=== PATIENT | female | born 1990 | race Caucasian/White ===

== ENCOUNTER 2017-03-01 17:41 | Inpatient (IN) | payer MEDICAID, OTHER ==
[~2017-03-01] VITALS: Ht 170.2 cm; Wt 86.6 kg
[~2017-03-01 17:41] MED LIST: PREN1CAP7 PO
[2017-03-01] MEDS ORDERED: BUPR150CR PO (17:58)
[2017-03-01] MEDS ORDERED: ADDE30TA PO (17:58)
[2017-03-01] MEDS ORDERED: METH10TA PO (17:59)
--- NOTE | 2017-03-01 18:36 | HHI.HP ---
HPI Chief Complaint High blood pressure and swelling, [facility] Date Seen: Mar 01, 2017 Travel History International Travel<30 Days: No Contact w/Intl Traveler<30Days: No History of Present Illness HPI Patient is 26-year-old white female G2 1 P0 at 31 weeks gestation [facility]. Who presents referred over for high blood pressure. Patient states everything was fine until a week ago when she noted she started swelling massively and her blood pressure went up has been going on for a week she has not been at bedrest. She states she continues to swell excessively in her legs hands and even face. She's gained a lot of weight in the last 2 weeks. In that she's gained 60 pounds overall with . Her blood pressures in the 150 over 90s range, she is massively swollen and the lower extremities, heart rate is reactive and she is not jann. Patient denies visual changes of flashing lights or sparkles in her vision denies significant headache only when she is hungry she says she gets a headache, she has no significant right upper quadrant pain but occasionally has some abdominal pain overall, she feels okay otherwise she does not have a overall malaise or her just bad feeling ,. the baby is active Para: 0 : 1 History Past Medical History Narrative Medical Patient had some type of superficial infection on her arms and required surgical resection and spots depression / anxiety was on wellbutrin and adderall Social History Narrative Social History She has a history of IV drug abuse but states she is not doing that now she' s in the methadone clinic in every day gets her methadone Tobacco Use: Yes Substance Abuse: Yes Allergies-Medications (Allergen,Severity, Reaction): Coded Allergies: *MDRO Multi-Drug Resistant Organism (Verified Adverse Reaction, Unknown, ) MRSA ankle wound 03/2015. Home Meds Active Scripts W/O Vit A W/ Fe Fumar (Citranatal [place])27-1-260 Mg Cap1 Cap PO DAILY #60 CAP Ref 5 Prov:Tania Townsend CNM DIRECTOR ZONE 12/25/16 Reported Medications Methadone 10 Mg Tab10 Mg PO DAILY Ref 0 03/01/17 Amphetamine-Dextroamphetamine (Adderall)30 Mg Tab30 Mg PO BID #60 TAB Ref 0 Avoid late evening doses. Space doses at least 4 to 6 hours if more than once/day dosing. 03/01/17 Bupropion HCl ER 12 HR (Wellbutrin SR 12 HR)150 Mg [id number] Mg PO Q12HR PRN ( Control Depression) Ref 0 03/01/17 Review of Systems General / Constitutional: No: Fever, Weight Gain, Chills, Other Eyes: No: Diploplia, Blurred Vision, Visual changes, Pain, Photophobia HENT: No: Headaches, Vertigo, Lightheadedness Cardiovascular: No: Irregular Rhythm, Chest Pain or Discomfort, Palpitations, Tachycardia, Syncope, Varicosities, Edema, Cyanosis Respiratory: No: Cough, Short of Breath, Other Gastrointestinal: No: Nausea, Vomiting, Diarrhea Genitourinary: No: Decreased Urinary Output, Oliguria Musculoskeletal: No: Limited ROM, Weakness, Cramping, Edema, Pain Skin: No Rash, No Itching, No Dryness, No Lumps, No Change in Pigmentation, No Change in Nails, No Alopecia, No Lesions Neurologic: No: Weakness, Dizziness, Syncope, Focal Abnormalities, Coordination Problem, Headache, Slurred Speech, Seizures Psychiatric: No: Depression, Suicidal Ideations, Homicidal Ideation Endocrine: No: Heat Intolerance, Cold Intolerance, Polydipsia, Polyuria, Other Physical Exam Narrative GENERAL: Well-nourished, well-developed patient. SKIN: Warm and dry. HEAD: Normocephalic and atraumatic. EYES: No scleral icterus. No injection or drainage. ENT: No nasal drainage noted. Mucous membranes pink. Airway patent. NECK: Supple, trachea midline. No JVD. CARDIOVASCULAR: Regular rate and rhythm without murmurs, gallops, or rubs. RESPIRATORY: Breath sounds equal bilaterally. No accessory muscle use. BREASTS: Bilateral exam showed no masses , no retractions, no nipple discharge. ABDOMEN/GI: Abdomen soft, non-tender, bowel sounds present, no rebound, no guarding Gravid to [31-] weeks size Fundal Height: [31-] GENITOURINARY: External Genitalia: intact and normal in appearance BUS glands: [-] Cervix: [-] Dilatation: Fingertip] Effacement: [-] 50 Station: [-3] Membranes: [intact ] Uterine Contractions: [-none] FHT's: Category: [1-] Baseline: [-133] Reactive: [-yes] Variability: [-mod] Decels: [-none] EXTREMITIES: No cyanosis, 4+ pitting edema BACK: Nontender without obvious deformity. No CVA tenderness. NEUROLOGICAL: Awake and alert. Motor and sensory grossly within normal limits. Five out of 5 muscle strength in all muscle groups. Normal speech. Data Data Orders 26-year-old white female at 31 weeks with preeclampsia, blood pressures 150 over 90s she has 4+ pitting edema and 3+ protein on dipstick. Plan to admit for hospital for PIH labs and 24-hour urine protein creatinine clearance, bedrest as her therapy at this time would anticipate her losing quite a bit of wt if she'll stay in bed for the next well until she delivers basically Plan OB ultrasound for tomorrow Grady Kim II, MD Mar 01, 2017 18:36
[2017-03-01] MEDS ORDERED: hydrALAZINE HCL 20 MG/ML VIAL IV PUSH PRN ×2 (18:45→19:15)
[2017-03-01] MEDS ORDERED: ACETAMINOPHEN 325 MG TAB PO PRN (18:45)
[2017-03-01] MEDS ORDERED: DOCUSATE SODIUM 100 MG CAP PO PRN (18:45)
[2017-03-01] MEDS ORDERED: ONDANSETRON HCL 4 MG/2 ML VIAL IV PRN (18:45)
[2017-03-01] MEDS ORDERED: CALCIUM GLUCONATE 10% 1 GM/10 ML VIAL IV PUSH PRN (18:45)
[2017-03-01] MEDS ORDERED: BETAMETHASONE SOD PHOS/ACETATE SUSP 30 MG/5 ML VIAL IM SCH (18:45)
[2017-03-01] MEDS ORDERED: LACTATED RINGER'S 1000 ML INJ 1,000 ML IV SCH (18:45)
[2017-03-01] MEDS ORDERED: SODIUM CHLORIDE 0.9% FLUSH 5 ML FLUSH IV PRN (18:45)
[2017-03-01] MEDS ORDERED: ZOLPIDEM TARTRATE 5 MG TAB PO PRN (18:45)
[2017-03-01] MEDS ORDERED: buPROPion HCL 150 MG SUSTAINED RELEASE TAB PO ONE (19:00)
[2017-03-01] MEDS ORDERED: SODIUM CHLORIDE 0.9% FLUSH 5 ML FLUSH IV SCH (21:00)
[2017-03-02] MEDS ORDERED: MULTIVIT/MIN/PREN/FOL AC/IRON PRENATAL TAB PO SCH (09:00)
[2017-03-02] MEDS ORDERED: METHADONE HCL 10 MG TAB PO SCH (09:00)
== END 2017-03-01 19:20 | disposition left against medical advice (07) | DRG 781 ==
LOC: HOBED 17:41 → H2EA 19:01
PROVIDERS: ADMIT Obstetrics & Gynecology Maternal & Fetal Medicine; ATTEND Obstetrics & Gynecology Maternal & Fetal Medicine
DX: O14.93 Unspecified pre-eclampsia, third trimester (principal); F11.20 Opioid dependence, uncomplicated; O99.323 Drug use complicating pregnancy, third trimester; O99.333 Smoking (tobacco) complicating pregnancy, third trimester; F17.210 Nicotine dependence, cigarettes, uncomplicated; Z3A.31 31 weeks gestation of pregnancy

== ENCOUNTER 2017-03-08 18:53 | Observation (INO) | payer MEDICAID ==
[2017-03-08] VITALS (12 sets, daily range): BP systolic 139–149; BP diastolic 95–102; PULSE 60–83; RESP 22
[~2017-03-08 18:53] MED LIST changes: +ADDE30TA PO; +BUPR150CR PO; +METH10TA PO
[2017-03-08 20:13] LABS: BACTERIA, URINE RARE /hpf; BLOOD, URINE NEG (NEG); COMMENT (UR) CULT NOT INDICATED; CULTURE IF INDICATED CULT NOT INDICATED; GLUCOSE,URINE NEG (NEG); KETONE, URINE NEG (NEG); MUCUS URINE FEW /lpf (OCC); NITRITE,URINE NEG (NEG); SQUAMOUS EPITHELIAL CELL URINE 7 /hpf (0-5); URINE COLOR YELLOW (YELLW/STRAW)
[2017-03-08 20:18] LABS: BARBITURATES, URINE NEG (NEG); COCAINE, URINE NEG (NEG)
--- NOTE | 2017-03-08 20:30 | PD ---
HPI Chief Complaint sent from [facility] for preeclampsia workup, seen in office today with swelling and elevated blood pressure 154/100 Travel History International Travel<30 Days: No Contact w/Intl Traveler<30Days: No Known Affected Area: No History of Present Illness HPI Pt is a 26 y/o G1 with IUP at 32.4 weeks presents from [facility] for preeclampsia evaluation. Pt seen in office today and noted to have a blood pressure of 154/ 100. She also reports severe swelling of feet and LE, as well as some swelling of hands. She reports intermittent headaches for past 3 weeks, sometimes relieved with excedrin. Pt denies ruq pain, vision change, or scotomata. PT denies contractions, vb, lof. +FM Para: 0 : 1 History Past Medical History Narrative Medical history of IVDA, on methdone maintenance since 2014 h/o MRSA ADHD Past Surgical History Narrative Surgical I+D, arm abscess Family History Family History: Negative Social History Alcohol Use: No Tobacco Use: Yes (5 cig/day) Substance Abuse: No (h/o IVDA) Allergies-Medications (Allergen,Severity, Reaction): Coded Allergies: *MDRO Multi-Drug Resistant Organism (Verified Adverse Reaction, Unknown, ) MRSA ankle wound 03/2015. Home Meds Active Scripts W/O Vit A W/ Fe Fumar (Citranatal [place])27-1-260 Mg Cap1 Cap PO DAILY #60 CAP Ref 5 Prov:Tania Townsend CNM MEDICAID BILLING CLERK 12/25/16 Reported Medications Methadone 10 Mg Tab10 Mg PO DAILY Ref 0 03/01/17 Amphetamine-Dextroamphetamine (Adderall)30 Mg Tab30 Mg PO BID #60 TAB Ref 0 Avoid late evening doses. Space doses at least 4 to 6 hours if more than once/day dosing. 03/01/17 Bupropion HCl ER 12 HR (Wellbutrin SR 12 HR)150 Mg [id number] Mg PO Q12HR PRN ( Control Depression) Ref 0 03/01/17 Narrative Medication zantac Review of Systems General / Constitutional: Weight Gain Eyes: No: Diploplia, Blurred Vision, Visual changes, Pain, Photophobia, Other HENT: Headaches Cardiovascular: No: Irregular Rhythm, Chest Pain or Discomfort, Palpitations, Tachycardia, Syncope, Varicosities, Edema, Cyanosis, Other Respiratory: No: Cough, Short of Breath, Wheezing, Other Gastrointestinal: No: Nausea, Vomiting, Diarrhea, Abdominal Pain, Hematemesis, Hematochezia, Constipation, Changes in Bowel Habits, Indigestion, Loss of Appetite, Other Genitourinary: No: Urgency, Frequency, Dysuria, Nocturia, Hematuria, Decreased Urinary Output, Oliguria, Hesitancy, Dribbling, Incontinence, Pelvic Pain, Dyspareunia, Discharge, Menorrhagia, Vaginal Bleeding, Other Musculoskeletal: Edema Skin: No Rash, No Itching, No Dryness, No Lumps, No Change in Pigmentation, No Change in Nails, No Alopecia, No Lesions, No Breast Lumps, No Breast Tenderness , No Breast Swelling, No Other Neurologic: Headache Psychiatric: No: Anxiety, Depression, Suicidal Ideations, Disorder of Thought, Mood Disorder, Substance Abuse, Homicidal Ideation, Other Endocrine: No: Heat Intolerance, Cold Intolerance, Polydipsia, Polyuria, Other Hematologic/Lymphatic: No Easy Bruising, No Lymph Node Enlargement, No Other Physical Exam Vital Signs Date Time Temp Pulse Resp B/P Pulse Ox O2 Delivery O2 Flow Rate FiO2 03/08/17 19:40 75 blood pressure: 142/98, 139/95 Narrative GENERAL: Well-nourished, well-developed patient. SKIN: Warm and dry. HEAD: Normocephalic and atraumatic. EYES: No scleral icterus. No injection or drainage. ENT: No nasal drainage noted. Mucous membranes pink. Airway patent. NECK: Supple, trachea midline. No JVD. CARDIOVASCULAR: Regular rate and rhythm without murmurs, gallops, or rubs. RESPIRATORY: Breath sounds equal bilaterally. No accessory muscle use. ABDOMEN/GI: Abdomen soft, non-tender, bowel sounds present, no rebound, no guarding Gravid FHT's: Category: [1] Baseline: 125 Reactive: yes Variability: mod Decels: no EXTREMITIES: 2+ pedal edema extending to mid-lowe BACK: Nontender without obvious deformity. No CVA tenderness. NEUROLOGICAL: Awake and alert. Motor and sensory grossly within normal limits. Five out of 5 muscle strength in all muscle groups. Normal speech. 3+ patellar and biceps reflexes bilaterally, negative ankle clonus Data Data Vital Signs Reviewed: Yes Orders Vital Signs (Adult) .ON ADMISSION (03/08/17 19:35) ^ Labor Status (03/08/17 19:35) Urinalysis - C+S If Indicated (03/08/17 19:35) Cbc No Diff, Includes Plts (03/08/17 19:35) Comprehensive Metabolic Panel (03/08/17 19:35) Uric Acid (03/08/17 19:35) Ob/Psych Drug Screen, Urine (03/08/17 19:35) Mrsa Screen (03/08/17 19:36) Labs Laboratory Tests Test 03/08/17 19:30 Urine Color YELLOW Urine Turbidity HAZY Urine pH 6.0 Urine Specific [place] 1.033 Urine Protein 300 mg/dL Urine Glucose (UA) NEG mg/dL Urine Ketones NEG mg/dL Urine Occult Blood NEG Urine Nitrite NEG Urine Bilirubin NEG Urine Urobilinogen LESS THAN 2.0 MG/DL Urine Leukocyte Esterase NEG Urine RBC 2 /hpf Urine WBC 2 /hpf Urine Squamous Epithelial 7 /hpf Cells Urine Bacteria RARE /hpf Urine Mucus FEW /lpf Microscopic Urinalysis Comment CULT NOT INDICATED Urine Opiates Screen NEG Urine Barbiturates Screen NEG Urine Amphetamines Screen POS Urine Benzodiazepines Screen NEG Urine Cocaine Screen NEG Urine Cannabinoids Screen NEG MDM Medical Record Reviewed: Yes ( reviewed) Narrative Course / MDM 1. 26 y/o female G1 with IUP at 32.3 wks with elevated blood pressure, swelling , and intermittent headache--rule out preeclampsia --PIH labs ordered and UA collected --serial blood pressure monitoring 2. h/o MRSA--MRSA screen collected 3. h/o IVDA--on methadone maintenance UA with 3+ protein. Will admit for 24 hr urine collection in house. Initiate BMS, ultrasound in am. Labs still pending as RN and charge auditor attempted to draw blood/place IV line without success. Anesthesia notified to evaluate patient for IV access. Db Alvarado MD Mar 08, 2017 20:30
[2017-03-08 20:32] LABS: AMPHETAMINE, URINE POS (NEG)
[2017-03-08] MEDS ORDERED: LACTATED RINGER'S 1000 ML INJ 1,000 ML IV SCH (20:40)
[2017-03-08] MEDS ORDERED: SODIUM CHLORIDE 0.9% FLUSH 5 ML FLUSH IV PRN (20:45)
[2017-03-08] MEDS ORDERED: ONDANSETRON HCL 4 MG/2 ML VIAL IV PRN (20:45)
[2017-03-08] MEDS ORDERED: CALCIUM GLUCONATE 10% 1 GM/10 ML VIAL IV PUSH PRN (20:45)
[2017-03-08] MEDS ORDERED: ACETAMINOPHEN 325 MG TAB PO PRN (20:45)
[2017-03-08] MEDS ORDERED: ZOLPIDEM TARTRATE 5 MG TAB PO PRN (20:45)
[2017-03-08] MEDS ORDERED: BETAMETHASONE SOD PHOS/ACETATE SUSP 30 MG/5 ML VIAL IM SCH (20:45)
[2017-03-08] MEDS ORDERED: ONDANSETRON ODT 4 MG TAB PO PRN (20:45)
--- NOTE | 2017-03-08 20:52 | HHI.HP ---
History & Physical H&P HPI HPI Chief Complaint sent from [facility] for preeclampsia workup, seen in office today with swelling and elevated blood pressure 154/100 Travel History International Travel<30 Days: No Contact w/Intl Traveler<30Days: No Known Affected Area: No History of Present Illness HPI Pt is a 26 y/o G1 with IUP at 32.4 weeks presents from [facility] for preeclampsia evaluation. Pt seen in office today and noted to have a blood pressure of 154/ 100. She also reports severe swelling of feet and LE, as well as some swelling of hands. She reports intermittent headaches for past 3 weeks, sometimes relieved with excedrin. Pt denies ruq pain, vision change, or scotomata. PT denies contractions, vb, lof. +FM Para: 0 : 1 History (Limited) History Past Medical History Narrative Medical history of IVDA, on methdone maintenance since 2014 h/o MRSA ADHD Past Surgical History Narrative Surgical I+D, arm abscess Family History Family History: Negative Social History Alcohol Use: No Tobacco Use: Yes (5 cig/day) Substance Abuse: No (h/o IVDA) Allergies-Medications Allergies-Medications (Allergen,Severity, Reaction): Coded Allergies: *MDRO Multi-Drug Resistant Organism (Verified Adverse Reaction, Unknown, ) MRSA ankle wound 03/2015. Home Meds Active Scripts W/O Vit A W/ Fe Fumar (Citranatal [place])27-1-260 Mg Cap1 Cap PO DAILY #60 CAP Ref 5 Prov:Tania Townsend CNM SPD TECH 12/25/16 Reported Medications Methadone 10 Mg Tab10 Mg PO DAILY Ref 0 03/01/17 Amphetamine-Dextroamphetamine (Adderall)30 Mg Tab30 Mg PO BID #60 TAB Ref 0 Avoid late evening doses. Space doses at least 4 to 6 hours if more than once/day dosing. 03/01/17 Bupropion HCl ER 12 HR (Wellbutrin SR 12 HR)150 Mg [id number] Mg PO Q12HR PRN ( Control Depression) Ref 0 03/01/17 Narrative Medication zantac ROS Review of Systems General / Constitutional: Weight Gain Eyes: No: Diploplia, Blurred Vision, Visual changes, Pain, Photophobia, Other HENT: Headaches Cardiovascular: No: Irregular Rhythm, Chest Pain or Discomfort, Palpitations, Tachycardia, Syncope, Varicosities, Edema, Cyanosis, Other Respiratory: No: Cough, Short of Breath, Wheezing, Other Gastrointestinal: No: Nausea, Vomiting, Diarrhea, Abdominal Pain, Hematemesis, Hematochezia, Constipation, Changes in Bowel Habits, Indigestion, Loss of Appetite, Other Genitourinary: No: Urgency, Frequency, Dysuria, Nocturia, Hematuria, Decreased Urinary Output, Oliguria, Hesitancy, Dribbling, Incontinence, Pelvic Pain, Dyspareunia, Discharge, Menorrhagia, Vaginal Bleeding, Other Musculoskeletal: Edema Skin: No Rash, No Itching, No Dryness, No Lumps, No Change in Pigmentation, No Change in Nails, No Alopecia, No Lesions, No Breast Lumps, No Breast Tenderness , No Breast Swelling, No Other Neurologic: Headache Psychiatric: No: Anxiety, Depression, Suicidal Ideations, Disorder of Thought, Mood Disorder, Substance Abuse, Homicidal Ideation, Other Endocrine: No: Heat Intolerance, Cold Intolerance, Polydipsia, Polyuria, Other Hematologic/Lymphatic: No Easy Bruising, No Lymph Node Enlargement, No Other Physical Exam Physical Exam Vital Signs Date Time Temp Pulse Resp B/P Pulse Ox O2 Delivery O2 Flow Rate FiO2 03/08/17 19:40 75 blood pressure: 142/98, 139/95 Narrative GENERAL: Well-nourished, well-developed patient. SKIN: Warm and dry. HEAD: Normocephalic and atraumatic. EYES: No scleral icterus. No injection or drainage. ENT: No nasal drainage noted. Mucous membranes pink. Airway patent. NECK: Supple, trachea midline. No JVD. CARDIOVASCULAR: Regular rate and rhythm without murmurs, gallops, or rubs. RESPIRATORY: Breath sounds equal bilaterally. No accessory muscle use. ABDOMEN/GI: Abdomen soft, non-tender, bowel sounds present, no rebound, no guarding Gravid FHT's: Category: [1] Baseline: 125 Reactive: yes Variability: mod Decels: no EXTREMITIES: 2+ pedal edema extending to mid-lowe BACK: Nontender without obvious deformity. No CVA tenderness. NEUROLOGICAL: Awake and alert. Motor and sensory grossly within normal limits. Five out of 5 muscle strength in all muscle groups. Normal speech. 3+ patellar and biceps reflexes bilaterally, negative ankle clonus Data Data Data Vital Signs Reviewed: Yes Orders Vital Signs (Adult) .ON ADMISSION (03/08/17 19:35) ^ Labor Status (03/08/17 19:35) Urinalysis - C+S If Indicated (03/08/17 19:35) Cbc No Diff, Includes Plts (03/08/17 19:35) Comprehensive Metabolic Panel (03/08/17 19:35) Uric Acid (03/08/17 19:35) Ob/Psych Drug Screen, Urine (03/08/17 19:35) Mrsa Screen (03/08/17 19:36) Labs Laboratory Tests Test 03/08/17 19:30 Urine Color YELLOW Urine Turbidity HAZY Urine pH 6.0 Urine Specific [place] 1.033 Urine Protein 300 mg/dL Urine Glucose (UA) NEG mg/dL Urine Ketones NEG mg/dL Urine Occult Blood NEG Urine Nitrite NEG Urine Bilirubin NEG Urine Urobilinogen LESS THAN 2.0 MG/DL Urine Leukocyte Esterase NEG Urine RBC 2 /hpf Urine WBC 2 /hpf Urine Squamous Epithelial 7 /hpf Cells Urine Bacteria RARE /hpf Urine Mucus FEW /lpf Microscopic Urinalysis Comment CULT NOT INDICATED Urine Opiates Screen NEG Urine Barbiturates Screen NEG Urine Amphetamines Screen POS Urine Benzodiazepines Screen NEG Urine Cocaine Screen NEG Urine Cannabinoids Screen NEG MDM MDM Medical Record Reviewed: Yes ( reviewed) Narrative Course / MDM 1. 26 y/o female G1 with IUP at 32.3 wks with elevated blood pressure, swelling , and intermittent headache--rule out preeclampsia --PIH labs ordered and UA collected --serial blood pressure monitoring 2. h/o MRSA--MRSA screen collected 3. h/o IVDA--on methadone maintenance UA with 3+ protein. Will admit for 24 hr urine collection in house. Initiate BMS, ultrasound in am. Labs still pending as RN and charge master specialist attempted to draw blood/place IV line without success. Anesthesia notified to evaluate patient for IV access. Db Alvarado MD Mar 08, 2017 20:30 Db Alvarado MD Mar 08, 2017 20:52
[2017-03-08] MEDS ORDERED: SODIUM CHLORIDE 0.9% FLUSH 5 ML FLUSH IV SCH (21:00)
[2017-03-08 22:06] LABS: HEMATOCRIT 36.4 % (35.0-46.0); MEAN CELL VOLUME 81.9 FL (80.0-100.0); MEAN CORPUSCULAR HEMOGLOBIN 26.9 PG (27.0-34.0); MEAN CORPUSCULAR HGB CONC 32.8 % (32.0-36.0); PLATELET COUNT 149 TH/MM3 (150-450); RED BLOOD COUNT 4.44 MIL/MM3 (4.00-5.30); RED CELL DISTRIBUTION WIDTH 15.4 % (11.6-17.2)
[2017-03-08 22:08] LABS: REVIEW FLAG FINAL
[2017-03-08 22:13] LABS: ANION GAP 9 MEQ/L (5-15); AST (GOT) 62 U/L (15-37); BICARBONATE 19.7 MEQ/L (21.0-32.0); BLOOD UREA NITROGEN 14 MG/DL (7-18); CHLORIDE 106 MEQ/L (98-107); GLOMERULAR FILTRATION RATE 82 ML/MIN (>89); SODIUM (NA) 135 MEQ/L (136-145)
[2017-03-08 22:14] LABS: ALT (GPT) 31 U/L (10-53)
[2017-03-08 22:20] LABS: ALKALINE PHOSPHATASE 193 U/L (45-117); TOTAL BILIRUBIN ADULT 0.2 MG/DL (0.2-1.0)
[2017-03-09] MEDS ORDERED: MULTIVIT/MIN/PREN/FOL AC/IRON PRENATAL TAB PO SCH (09:00)
[2017-03-09] MEDS ORDERED: METHADONE HCL 10 MG TAB PO SCH (09:00)
[2017-03-20 14:25] LABS: GABAPENTIN UR NEG (NEG); HYDROMORPHONE U NEG (NEG); OXYCODONE (PERCODAN) NEG (NEG)
[2017-03-20 14:26] LABS: BATH SALTS (MDPV) UR NEG (NEG); ECSTASY (MDMA) UR NEG (NEG); HEROIN (6-ACETYLMORPHINE) UR NEG (NEG); K2 SPICE UR NEG (NEG)
[2017-03-20 14:29] LABS: PHENCYCLIDINE URINE NEG (NEG)
[2017-03-20 14:34] LABS: OBMETHADONE UR POS (NEG)
== END 2017-03-08 21:43 | disposition left against medical advice (07) ==
LOC: HOBED 18:53 → H2EA 20:45
PROVIDERS: ADMIT Obstetrics & Gynecology; ATTEND Obstetrics & Gynecology
DX: O14.93 Unspecified pre-eclampsia, third trimester (principal); R03.0 Elevated blood-pressure reading, without diagnosis of hypertension; Z3A.32 32 weeks gestation of pregnancy; M79.89 Other specified soft tissue disorders; O99.333 Smoking (tobacco) complicating pregnancy, third trimester; F90.9 Attention-deficit hyperactivity disorder, unspecified type; Z86.14 Personal history of Methicillin resistant Staphylococcus aureus infection; R51 Headache
CPT/HCPCS: 36415; 80053; 80307; 81001; 84550; 85027; 87081; 87641; G0378; G0481

== ENCOUNTER 2017-03-09 10:37 | Inpatient (IN) | payer MEDICAID ==
[~2017-03-09] VITALS: Ht 170.2 cm; Wt 89.4 kg
[2017-03-09 12:24] LABS: BACTERIA, URINE OCC /hpf; BLOOD, URINE TRACE (NEG); COMMENT (UR) CULT NOT INDICATED; CULTURE IF INDICATED CULT NOT INDICATED; GLUCOSE,URINE NEG (NEG); HYALINE CAST, URINE 1 /lpf (RARE); KETONE, URINE NEG (NEG); MUCUS URINE FEW /lpf (OCC); NITRITE,URINE NEG (NEG); PH, URINE 6.5 (5.0-8.5); SQUAMOUS EPITHELIAL CELL URINE 8 /hpf (0-5); URINE COLOR YELLOW (YELLW/STRAW)
[2017-03-09 12:24] LABS: AUTOMATED NEUTROPHIL # 6.4 TH/MM3 (1.8-7.7); BASOPHIL % 0.4 % (0.0-2.0); EOSINOPHIL # 0.2 TH/MM3 (0-0.4); EOSINOPHIL % 1.7 % (0.0-4.0); HEMATOCRIT 33.8 % (35.0-46.0); HEMO FLAGS DIFF FINAL; LYMPH % 21.2 % (9.0-44.0); LYMPHOCYTE # 1.9 TH/MM3 (1.0-4.8); MEAN CELL VOLUME 81.7 FL (80.0-100.0); NEUT % 69.7 % (16.0-70.0); PLATELET COUNT 140 TH/MM3 (150-450); RED BLOOD COUNT 4.13 MIL/MM3 (4.00-5.30); RED CELL DISTRIBUTION WIDTH 15.2 % (11.6-17.2); WHITE BLOOD COUNT 9.1 TH/MM3 (4.0-11.0)
[2017-03-09 12:42] LABS: URIC ACID 6.9 MG/DL (2.6-6.0)
[2017-03-09 12:43] LABS: INDIRECT BILIRUBIN 0.1 MG/DL (0.0-0.8); TOTAL BILIRUBIN ADULT 0.2 MG/DL (0.2-1.0)
[2017-03-09] MEDS ORDERED: PROMETHAZINE INJ 25 MG/ML VIAL IM SCH (13:00)
[2017-03-09] MEDS ORDERED: MORPHINE SULFATE 8 MG/ML INJ IM SCH (13:00)
[2017-03-09] MEDS: cloNIDine HCL 0.1 MG TAB PO SCH ×3 (13:28→21:00)
[2017-03-09] MEDS: LACTATED RINGER'S 1000 ML INJ 1,000 ML IV SCH ×3 (13:28→21:00)
[2017-03-09] MEDS: GABAPENTIN 300 MG CAP PO SCH ×3 (13:28→21:00)
[2017-03-09] MEDS ORDERED: CALCIUM GLUCONATE 10% 1 GM/10 ML VIAL IV PUSH PRN (15:15)
[2017-03-09] MEDS ORDERED: MAGNESIUM SULFATE 4 GM PREMIX 100 ML IV ONE (15:15)
[2017-03-09] MEDS ORDERED: SODIUM CHLORIDE 0.9% FLUSH 5 ML FLUSH IV PRN (15:15)
--- NOTE | 2017-03-09 15:57 | HHI.HP ---
HPI Chief Complaint 32 1/2 week IUP with elevated BP's, swelling and proteinuria methadone maintenance Date Seen: Mar 09, 2017 Travel History International Travel<30 Days: No Contact w/Intl Traveler<30Days: No Known Affected Area: No History of Present Illness HPI 26 yo swf at 32 1/2 weeks EGA here from [facility] with elevated BP, protein in urine and swelling. Hx of IVDA currently on methadone 10 mg in am. She has maintained at this dose despite recommendations to increase by DMTC. She has had no leaking, bleeding, UCs. some nausea and SCHNEIDER. Para: 0 : 1 History Past Medical History Medical History: Denies Significant Hx Obstetric History Obstetric History primip Past Surgical History Surgical History: No Previous Surgery Family History Family History: Negative Social History Alcohol Use: No Tobacco Use: Yes Substance Abuse: Yes Allergies-Medications (Allergen,Severity, Reaction): Coded Allergies: *MDRO Multi-Drug Resistant Organism (Verified Adverse Reaction, Unknown, ) MRSA PCR Positive 03/08/17 MRSA ankle wound 03/2015. Home Meds Active Scripts W/O Vit A W/ Fe Fumar (Citranatal [place])27-1-260 Mg Cap1 Cap PO DAILY #60 CAP Ref 5 Prov:TownsendTania CNHoda MAINSTREAMING FACILITATOR 12/25/16 Reported Medications Methadone 10 Mg Tab10 Mg PO DAILY Ref 0 03/01/17 Amphetamine-Dextroamphetamine (Adderall)30 Mg Tab30 Mg PO BID #60 TAB Ref 0 Avoid late evening doses. Space doses at least 4 to 6 hours if more than once/day dosing. 03/01/17 Bupropion HCl ER 12 HR (Wellbutrin SR 12 HR)150 Mg [id number] Mg PO Q12HR PRN ( Control Depression) Ref 0 03/01/17 Review of Systems HENT: Headaches Gastrointestinal: Nausea Physical Exam Narrative GENERAL: Well-nourished, well-developed patient. SKIN: Warm and dry. HEAD: Normocephalic and atraumatic. EYES: No scleral icterus. No injection or drainage. ENT: No nasal drainage noted. Mucous membranes pink. Airway patent. NECK: Supple, trachea midline. No JVD. CARDIOVASCULAR: Regular rate and rhythm without murmurs, gallops, or rubs. RESPIRATORY: Breath sounds equal bilaterally. No accessory muscle use. BREASTS: Bilateral exam showed no masses , no retractions, no nipple discharge. ABDOMEN/GI: Abdomen soft, non-tender, bowel sounds present, no rebound, no guarding Gravid to [-] weeks size Fundal Height: [-] GENITOURINARY: External Genitalia: intact and normal in appearance FH=33 strip category one EXTREMITIES: No cyanosis 3+ edema no phleblitis normal deep tendon reflexes BACK: Nontender without obvious deformity. No CVA tenderness. NEUROLOGICAL: Awake and alert. Motor and sensory grossly within normal limits. Five out of 5 muscle strength in all muscle groups. Normal speech. Data Data Orders ^ Call Anesthesiologist (03/09/17 10:53) ^ Call Physician (03/09/17 10:53) Diet Npo (03/09/17 Breakfast) Complete Blood Count With Diff (03/09/17 10:53) Urinalysis - C+S If Indicated (03/09/17 10:53) Specimen To Be Collected PRN (03/09/17 10:53) Uric Acid (03/09/17 10:53) Hepatic Functional Panel (03/09/17 10:53) Hepatitis C Rna Quantitative (03/09/17 10:53) Total Protein 24hr Urine (03/09/17 10:53) ^ Other Nursing Orders (03/09/17 10:53) Activity Bed Rest (03/09/17 10:53) Intake + Output 06,14,22 (03/09/17 10:53) ^ Seizure Precautions (03/09/17 10:53) Morphine Inj (Morphine Inj) (03/09/17 13:00) Promethazine Inj (Phenergan Inj) (03/09/17 13:00) Clonidine (Catapres) (03/09/17 13:00) Gabapentin (Neurontin) (03/09/17 13:00) Lactated Ringer's 1000 Ml Inj (Lr 1000 M (03/09/17 13:00) Vascular Poc Ultrasound (03/09/17 ) Vascular Access Team Consult/P PRN (03/09/17 13:36) ^ Check Deep Tendon Reflexes Q1H (03/09/17 15:10) Lactated Ringer's 1000 Ml Inj (Lr 1000 M (03/09/17 16:00) Sodium Chloride 0.9% Flush (Ns Flush) (03/09/17 15:15) Sodium Chloride 0.9% Flush (Ns Flush) (03/09/17 21:00) Magnesium Sulfate 40 Gm Premix (Magnesiu (03/09/17 15:10) Betamethasone Inj ([place] Soluspan In (03/09/17 16:00) Calcium Gluconate Inj (Calcium Gluconate (03/09/17 15:15) Magnesium Sulfate 4 Gm Premix (Magnesium (03/09/17 15:15) Us Ob Bpp Wo Nst (03/09/17 15:10) Methadone (Dolophine) (03/10/17 07:00) Diet Regular Basic (03/09/17 Dinner) Labs Laboratory Tests Test 03/09/17 03/09/17 12:00 12:15 Urine Color YELLOW Urine Turbidity HAZY Urine pH 6.5 Urine Specific [place] 1.026 Urine Protein 300 Urine Glucose (UA) NEG Urine Ketones NEG Urine Occult Blood TRACE Urine Nitrite NEG Urine Bilirubin NEG Urine Urobilinogen LESS THAN 2.0 Urine Leukocyte Esterase NEG Urine RBC 1 Urine WBC 2 Urine Squamous Epithelial 8 Cells Urine Bacteria OCC Urine Hyaline Casts 1 Urine Mucus FEW Microscopic Urinalysis Comment CULT NOT INDICATED White Blood Count 9.1 Red Blood Count 4.13 Hemoglobin 11.2 Hematocrit 33.8 Mean Corpuscular Volume 81.7 Mean Corpuscular Hemoglobin 27.0 Mean Corpuscular Hemoglobin 33.0 Concent Red Cell Distribution Width 15.2 Platelet Count 140 Mean Platelet Volume 11.1 Neutrophils (%) (Auto) 69.7 Lymphocytes (%) (Auto) 21.2 Monocytes (%) (Auto) 7.0 Eosinophils (%) (Auto) 1.7 Basophils (%) (Auto) 0.4 Neutrophils # (Auto) 6.4 Lymphocytes # (Auto) 1.9 Monocytes # (Auto) 0.6 Eosinophils # (Auto) 0.2 Basophils # (Auto) 0.0 CBC Comment DIFF FINAL Differential Comment Uric Acid 6.9 Total Bilirubin 0.2 Direct Bilirubin 0.1 Indirect Bilirubin 0.1 Aspartate Amino Transf 20 (AST/SGOT) Alanine Aminotransferase 23 (ALT/SGPT) Alkaline Phosphatase 178 Total Protein 5.5 Albumin 2.0 Assessment/Plan Assessment and Plan 32 1/2 week IUP pre eclampsia not severe methadone maintenance labs reassuring (platelets mildly decreased) 24 hour urine pending Mg for neuroprotection beta methasone can eat strict I and O Lorene Giles MD Mar 09, 2017 15:57
[2017-03-09] MEDS: MAGNESIUM SULFATE 40 GM PREMIX 1,000 ML IV SCH (16:18)
[2017-03-09] MEDS: BETAMETHASONE SOD PHOS/ACETATE SUSP 30 MG/5 ML VIAL IM SCH (16:18)
[2017-03-09] MEDS: SODIUM CHLORIDE 0.9% FLUSH 5 ML FLUSH IV SCH (21:00)
[2017-03-09] MEDS: LABETALOL HCL 100 MG TAB PO SCH (21:00)
[2017-03-10 01:10] LABS: BARBITURATES, URINE NEG (NEG); COCAINE, URINE NEG (NEG)
[2017-03-10 01:30] LABS: AMPHETAMINE, URINE POS (NEG)
[2017-03-10] MEDS: LACTATED RINGER'S 1000 ML INJ 1,000 ML IV SCH ×4 (05:00→14:31)
[2017-03-10] MEDS ORDERED: METHADONE HCL 10 MG TAB PO ONE (07:00)
[2017-03-10] MEDS: SODIUM CHLORIDE 0.9% FLUSH 5 ML FLUSH IV SCH ×2 (07:30→21:00)
[2017-03-10] MEDS: LABETALOL HCL 100 MG TAB PO SCH ×2 (08:22→21:07)
[2017-03-10] MEDS: cloNIDine HCL 0.1 MG TAB PO SCH ×4 (08:22→21:07)
[2017-03-10] MEDS: GABAPENTIN 300 MG CAP PO SCH ×4 (08:22→21:07)
[2017-03-10] MEDS: MAGNESIUM SULFATE 40 GM PREMIX 1,000 ML IV SCH (11:30)
[2017-03-10 13:05] LABS: URINE TOTAL PROTEIN TIMED 193.3 MG/DL
[2017-03-10 13:38] LABS: AUTOMATED NEUTROPHIL # 11.6 TH/MM3 (1.8-7.7); BASOPHIL % 0.3 % (0.0-2.0); HEMATOCRIT 34.2 % (35.0-46.0); LYMPHOCYTE # 1.4 TH/MM3 (1.0-4.8); MEAN CELL VOLUME 81.4 FL (80.0-100.0); MEAN CORPUSCULAR HEMOGLOBIN 26.4 PG (27.0-34.0); MEAN CORPUSCULAR HGB CONC 32.4 % (32.0-36.0); MONO % 4.9 % (0.0-8.0); NEUT % 84.8 % (16.0-70.0); PLATELET COUNT 136 TH/MM3 (150-450); RED CELL DISTRIBUTION WIDTH 15.5 % (11.6-17.2); WHITE BLOOD COUNT 13.7 TH/MM3 (4.0-11.0)
[2017-03-10 13:40] LABS: ALKALINE PHOSPHATASE 170 U/L (45-117); ALT (GPT) 21 U/L (10-53); AST (GOT) 49 U/L (15-37); INDIRECT BILIRUBIN 0.1 MG/DL (0.0-0.8); TOTAL BILIRUBIN ADULT 0.2 MG/DL (0.2-1.0); URIC ACID 6.8 MG/DL (2.6-6.0)
[2017-03-10 13:42] LABS: HEMO FLAGS AUTO DIFF
[2017-03-10 14:34] LABS: PLATELET ESTIMATE SMEAR LOW (NORMAL); PLATELET MORPHOLOGY GIANT (NORMAL); SCAN/DIFF AUTO DIFF CONFIRMED
[2017-03-10] MEDS: BETAMETHASONE SOD PHOS/ACETATE SUSP 30 MG/5 ML VIAL IM SCH (16:45)
[2017-03-10] MEDS ORDERED: DINOPROSTONE 10 MG VAG INSERT VAGINAL ONE (20:00)
--- NOTE | 2017-03-10 23:08 | PD.OB.ANTE ---
Objective Lab & Micro Results Test 03/10/17 03/10/17 11:15 12:00 Urine Total Volume 24 Hours 2400 ML Urine Total Protein 24 Hour 4639 MG/24HR White Blood Count 13.7 TH/MM3 Red Blood Count 4.20 MIL/MM3 Hemoglobin 11.1 GM/DL Hematocrit 34.2 % Mean Corpuscular Volume 81.4 FL Mean Corpuscular Hemoglobin 26.4 PG Mean Corpuscular Hemoglobin 32.4 % Concent Red Cell Distribution Width 15.5 % Platelet Count 136 TH/MM3 Mean Platelet Volume 11.6 FL Neutrophils (%) (Auto) 84.8 % Lymphocytes (%) (Auto) 10.0 % Monocytes (%) (Auto) 4.9 % Eosinophils (%) (Auto) 0.0 % Basophils (%) (Auto) 0.3 % Neutrophils # (Auto) 11.6 TH/MM3 Lymphocytes # (Auto) 1.4 TH/MM3 Monocytes # (Auto) 0.7 TH/MM3 Eosinophils # (Auto) 0.0 TH/MM3 Basophils # (Auto) 0.0 TH/MM3 CBC Comment AUTO DIFF Differential Comment AUTO DIFF CONFIRMED Platelet Estimate LOW Platelet Morphology Comment GIANT Hematology Comments Uric Acid 6.8 MG/DL Total Bilirubin 0.2 MG/DL Direct Bilirubin LESS THAN 0.1 MG/DL Indirect Bilirubin 0.1 MG/DL Aspartate Amino Transf 49 U/L (AST/SGOT) Alanine Aminotransferase 21 U/L (ALT/SGPT) Alkaline Phosphatase 170 U/L Total Protein 5.4 GM/DL Albumin 1.7 GM/DL Physical Exam Platelets mildly decreased. LFTs starting to increase > 4 gm protein in 24 hour urine. BPs reasonable on low dose labetolol. Will allow 2day course of betamethasone and magnesium to be completed and move toward delivery. Assessment and Plan Assessment and Plan 32 1/2 week IUP pre eclampsia not severe methadone maintenance labs reassuring (platelets mildly decreased) 24 hour urine pending Mg for neuroprotection beta methasone can eat strict I and O Lorene Giles MD Mar 10, 2017 23:08
[2017-03-11] VITALS (22 sets, daily range): BP systolic 113–135; BP diastolic 68–103; PULSE 65–115; RESP 16–18; TEMP 96.2–98.6; O2SAT 93–96
[2017-03-11 06:17] LABS: ALT (GPT) 22 U/L (10-53); AST (GOT) 18 U/L (15-37)
[2017-03-11 06:19] LABS: ALKALINE PHOSPHATASE 178 U/L (45-117); TOTAL BILIRUBIN ADULT 0.1 MG/DL (0.2-1.0)
[2017-03-11] MEDS: MAGNESIUM SULFATE 40 GM PREMIX 1,000 ML IV SCH (08:16)
[2017-03-11 08:48] LABS: AUTOMATED NEUTROPHIL # 12.6 TH/MM3 (1.8-7.7); BASOPHIL % 0.1 % (0.0-2.0); HEMATOCRIT 31.7 % (35.0-46.0); HEMO FLAGS DIFF FINAL; LYMPH % 9.4 % (9.0-44.0); LYMPHOCYTE # 1.4 TH/MM3 (1.0-4.8); MEAN CELL VOLUME 80.6 FL (80.0-100.0); MEAN CORPUSCULAR HEMOGLOBIN 26.8 PG (27.0-34.0); MEAN CORPUSCULAR HGB CONC 33.3 % (32.0-36.0); MONO % 4.2 % (0.0-8.0); NEUT % 86.3 % (16.0-70.0); PLATELET COUNT 126 TH/MM3 (150-450); RED BLOOD COUNT 3.93 MIL/MM3 (4.00-5.30); RED CELL DISTRIBUTION WIDTH 14.8 % (11.6-17.2); WHITE BLOOD COUNT 14.6 TH/MM3 (4.0-11.0)
[2017-03-11] MEDS: SODIUM CHLORIDE 0.9% FLUSH 5 ML FLUSH IV SCH (09:00)
[2017-03-11] MEDS: GABAPENTIN 300 MG CAP PO SCH ×4 (09:20→21:00)
[2017-03-11] MEDS: LABETALOL HCL 100 MG TAB PO SCH ×2 (09:20→21:37)
[2017-03-11] MEDS: cloNIDine HCL 0.1 MG TAB PO SCH ×4 (09:20→21:00)
[2017-03-11] MEDS ORDERED: METHADONE HCL 10 MG TAB PO ONE (10:00)
[2017-03-11] MEDS ORDERED: LACTATED RINGER'S 1000 ML INJ 1,000 ML IV ONE (11:16)
[2017-03-11] MEDS: LACTATED RINGER'S 1000 ML INJ 1,000 ML IV SCH ×4 (11:46→19:11)
[2017-03-11] MEDS ORDERED: OXYTOCIN 10 UNIT/ML AMP ONE (11:56)
[2017-03-11] MEDS ORDERED: EPIDURAL-DIPHENHYDRAMINE HCL 50 MG/ML VIAL IV PUSH PRN ×2 (12:20→15:15)
[2017-03-11] MEDS ORDERED: EPIDURAL-NO SYSTEMIC NARCOTICS PRN ×2 (12:20→15:15)
[2017-03-11] MEDS ORDERED: EPIDURAL-NALOXONE HCL 0.4 MG/ML AMP IV PRN ×2 (12:20→15:15)
[2017-03-11] MEDS ORDERED: EPIDURAL-DIPHENHYDRAMINE HCL 50 MG CAP PO PRN ×2 (12:20→15:15)
[2017-03-11] MEDS ORDERED: EPIDURAL-DO NOT ADMINISTER ANTICOAGULANTS PRN ×2 (12:20→15:15)
[2017-03-11] MEDS ORDERED: MAGNESIUM SULFATE 40 GM PREMIX 1,000 ML IV SCH (12:43)
[2017-03-11] MEDS ORDERED: SODIUM CHLORIDE 0.9% FLUSH 10 ML FLUSH IV FLUSH PRN (12:45)
[2017-03-11] MEDS ORDERED: CALCIUM GLUCONATE 10% 1 GM/10 ML VIAL IV PUSH PRN (12:45)
[2017-03-11] MEDS ORDERED: oxyCODONE/ACETAMINOPHEN 5 MG/325 MG TAB PO PRN ×2 (12:45)
[2017-03-11] MEDS ORDERED: SIMETHICONE 80 MG CHEWABLE TAB PO PRN (12:45)
[2017-03-11] MEDS ORDERED: OXYTOCIN 30 UNITS-500ML PREMIX 500 ML IV ONE (12:45)
[2017-03-11] MEDS ORDERED: SODIUM CHLORIDE 0.9% FLUSH 5 ML FLUSH IV PRN (12:45)
[2017-03-11] MEDS ORDERED: DOCUSATE SODIUM 50 MG/SENNA 8.6 MG TAB PO PRN (12:45)
[2017-03-11] MEDS ORDERED: ONDANSETRON HCL 4 MG/2 ML VIAL IV PUSH PRN (12:45)
[2017-03-11] MEDS ORDERED: ACETAMINOPHEN 1000 MG/100 ML VIAL IV ONE (12:45)
[2017-03-11] MEDS ORDERED: CITRIC ACID-SODIUM CITRATE LIQ 30 ML UDC PO SCH (13:00)
--- NOTE | 2017-03-11 13:25 | PD.OB.DELI ---
Procedure Note Section Procedure Pre Op Diagnosis 32 6/7 week IUP pre eclampsia with severe features opioid maintenance Post Op Diagnosis: Post Op Diagnosis same, delivered Performed by Lorene Giles Procedure: Primary Low Transverse Sec Informed consent obtained: For anesthesia, For procedure Confirmed correct: Patient, Procedure, Site, Time-out taken Anesthesia: Spinal Medication prior to procedure: As documented in eMAR Monitoring during procedure: Blood pressure monitoring Urinary catheter: Inserted using sterile technique, To dependent drainage Sterile preparation: Duraprep, In usual fashion Position: Supine with wedge to right side Operative Features Skin Incision: Pfannenstiel Uterine Incision: Low transverse w/knife / blunt ext Membranes Ruptured: Artificially Presentation: Occiput anterior Delivery of infant: Assisted : Male One Minute : 8 Five Minute : 8 Weight: 5 Status of infant: Viable Placenta delivered: Intact Medications: Antibiotics, Oxytocin Estimated blood loss: 500 Procedure tolerated: Well Maternal Condition: Stable Condition: Stable (dictated) Lorene Giles MD Mar 11, 2017 13:25
[2017-03-11] MEDS ORDERED: ONDANSETRON HCL 4 MG/2 ML VIAL ONE (13:38)
[2017-03-11] MEDS ORDERED: MORPHINE SULFATE PF 10 MG/10 ML VIAL ONE (13:38)
[2017-03-11] MEDS ORDERED: SODIUM CHLORIDE 0.9% FLUSH 5 ML FLUSH IV SCH (21:00)
[2017-03-11] MEDS: SODIUM CHLORIDE 0.9% FLUSH 10 ML FLUSH IV FLUSH SCH (21:00)
[2017-03-11] MEDS: ZOLPIDEM TARTRATE 10 MG TAB PO PRN (21:37)
[2017-03-11] MEDS ORDERED: OXYTOCIN 30 UNITS-500ML PREMIX 500 ML IV PRN (22:45)
[2017-03-11 23:51] LABS: HCV RNA PCR IU/ML LESS THAN 15 IU/mL (()); HCV RNA PCR LOGIU/ML LESS THAN 1.18 (())
[2017-03-12] VITALS (25 sets, daily range): BP systolic 121–142; BP diastolic 78–95; PULSE 67–87; RESP 16–20; TEMP 97.8–98.8
[2017-03-12] MEDS: LACTATED RINGER'S 1000 ML INJ 1,000 ML IV SCH ×3 (01:06→06:10)
--- NOTE | 2017-03-12 08:30 | HHI.OB ---
Subjective Post Operative Day: 1 Remarks pt resting comfortably Objective Vitals/I&O Vital Signs Date Time Temp Pulse Resp B/P Pulse Ox O2 Delivery O2 Flow Rate FiO2 03/12/17 07:34 16 03/12/17 07:00 72 126/89 03/12/17 06:06 18 03/12/17 06:00 72 133/91 03/12/17 05:02 18 03/12/17 05:00 70 03/12/17 05:00 138/95 03/12/17 04:10 18 03/12/17 04:00 68 142/93 03/12/17 03:10 18 03/12/17 03:00 68 128/91 03/12/17 02:10 18 03/12/17 02:00 70 132/86 03/12/17 01:10 18 03/12/17 01:10 97.8 03/12/17 01:00 67 127/84 03/12/17 00:10 18 03/12/17 00:00 68 125/83 03/11/17 23:10 18 03/11/17 23:00 72 121/83 03/11/17 22:10 98.2 03/11/17 22:10 18 03/11/17 22:00 65 127/85 03/11/17 21:10 18 03/11/17 21:00 66 130/85 03/11/17 20:10 18 03/11/17 20:00 65 03/11/17 20:00 130/90 03/11/17 19:10 98.6 03/11/17 19:10 18 03/11/17 19:03 70 135/83 03/11/17 19:01 115 131/103 03/11/17 18:00 67 127/82 03/11/17 17:00 71 131/80 03/11/17 16:00 67 123/84 03/11/17 15:40 68 115/79 03/11/17 15:40 18 03/11/17 14:40 96.2 03/11/17 14:30 18 03/11/17 14:29 67 127/79 03/11/17 14:00 17 96 03/11/17 14:00 69 113/68 03/11/17 13:45 18 95 03/11/17 13:45 72 117/71 03/11/17 13:30 93 03/11/17 13:30 117/68 93 03/11/17 13:30 69 03/11/17 13:24 98.1 03/11/17 13:24 70 16 116/71 Result Diagram: 03/11/17 0840 Objective Remarks GENERAL: Well-nourished, well-developed patient. CARDIOVASCULAR: Regular rate and rhythm without murmurs, gallops, or rubs. RESPIRATORY: Breath sounds equal bilaterally. No accessory muscle use. ABDOMEN/GI: Abdomen soft, non-tender, bowel sounds present. Incision: dressing Clean, dry and intact. Fundus: Firm, non-tender at umbilicus. GENITOURINARY: Light to moderate bleeding. EXTREMITIES: No cyanosis, non-tender, without signs of DVT, SCDs in place Medications and IVs Current Medications Medications (Trade) Dose Ordered Sig/Gale Route Start Time Stop Time Status Last Admin (Catapres) 0.1 mg QID PO 03/09/17 13:00 03/11/17 19:10 (Neurontin) 300 mg QID PO 03/09/17 13:00 03/11/17 19:11 (Trandate) 100 mg BID PO 03/09/17 21:00 03/11/17 21:37 Zolpidem Tartrate 10 mg 10 mg HS PRN PO 03/09/17 18:15 03/11/17 21:37 Lactated Ringer's 1,000 ml @ 150 mls/hr Q6H40M IV 03/11/17 11:46 (Lr 1000 ml Inj) 1,000 ml @ 100 mls/hr Q10H IV 03/11/17 17:43 03/12/17 13:42 03/12/17 06:10 (NS Flush) 2 ml BID IV FLUSH 03/11/17 21:00 (NS Flush) 2 ml UNSCH PRN IV FLUSH 03/11/17 12:45 (Mylicon Chew) 80 mg QID PRN PO 03/11/17 12:45 (Amy-Colace) 2 tab Q12H PRN PO 03/11/17 12:45 (M-M-R Ii Inj) 0.5 ml ONCE ONCE SQ 03/12/17 16:00 03/12/17 16:01 (Boostrix Inj) 0.5 ml ONCE ONCE IM 03/12/17 16:00 03/12/17 16:01 Ondansetron HCl 4 mg 4 mg Q6H PRN IV PUSH 03/11/17 12:45 Lactated Ringer's 1,000 ml @ 75 mls/hr [id number] IV 03/11/17 12:43 03/11/17 19:11 (Magnesium Sulfate 40 Gm Premix) 1,000 ml @ 50 mls/hr Q20H IV 03/11/17 12:43 03/11/17 12:43 (Calcium Gluconate Inj) 1 gm UNSCH PRN IV PUSH 03/11/17 12:45 (Dolophine) 10 mg DAILY PO 03/12/17 09:00 Miscellaneous Information NO SYSTEMIC NARCOTICS TO BE GIVEN FO... UNSCH PRN .XX 03/11/17 12:20 03/12/17 12:19 (Narcan Inj) 0.4 mg UNSCH PRN IV 03/11/17 12:20 03/12/17 12:19 (Benadryl Inj) 25 mg Q6H PRN IV PUSH 03/11/17 12:20 03/12/17 12:19 03/11/17 21:36 (Benadryl) 50 mg Q6H PRN PO 03/11/17 12:20 03/12/17 12:19 Miscellaneous Information ALL NURSING DEPARTMENTS UNSCH PRN .XX 03/11/17 12:20 03/12/17 12:19 Assessment/Plan Assessment and Plan 32 1/2 week IUP pre eclampsia , s/p C/S POD #1 methadone maintenance U.O. good, on MgSo4 until noon anticipate discharge POD 3 Discharge Planning routine Attending Attestation pt seen by Jacquelin Vazquez MD Mar 12, 2017 08:29
[2017-03-12] MEDS: SODIUM CHLORIDE 0.9% FLUSH 10 ML FLUSH IV FLUSH SCH (09:00)
[2017-03-12] MEDS: GABAPENTIN 300 MG CAP PO SCH ×3 (09:02→21:29)
[2017-03-12] MEDS: LABETALOL HCL 100 MG TAB PO SCH ×2 (09:02→21:29)
[2017-03-12] MEDS: METHADONE HCL 10 MG TAB PO SCH (09:02)
[2017-03-12] MEDS: cloNIDine HCL 0.1 MG TAB PO SCH ×3 (09:02→21:29)
[2017-03-12] MEDS ORDERED: MEASLES, MUMPS, RUBELLA VACCINE 0.5 ML VIAL SQ ONE (16:00)
[2017-03-12] MEDS ORDERED: DIPHTH/TETANUS/ACEL PERTUSSIS (BOOSTER) 0.5 ML VIAL/PFS IM ONE (16:00)
[2017-03-12] MEDS: IBUPROFEN 800 MG TAB PO SCH (18:10)
[2017-03-12] MEDS: ZOLPIDEM TARTRATE 10 MG TAB PO PRN (21:39)
[2017-03-13 05:55] LABS: AUTOMATED NEUTROPHIL # 8.8 TH/MM3 (1.8-7.7); BASOPHIL % 0.2 % (0.0-2.0); EOSINOPHIL # 0.1 TH/MM3 (0-0.4); EOSINOPHIL % 0.7 % (0.0-4.0); HEMATOCRIT 33.5 % (35.0-46.0); HEMO FLAGS DIFF FINAL; LYMPH % 17.8 % (9.0-44.0); LYMPHOCYTE # 2.2 TH/MM3 (1.0-4.8); MEAN CELL VOLUME 82.7 FL (80.0-100.0); MEAN CORPUSCULAR HEMOGLOBIN 27.3 PG (27.0-34.0); MONO % 10.2 % (0.0-8.0); NEUT % 71.1 % (16.0-70.0); PLATELET COUNT 140 TH/MM3 (150-450); RED BLOOD COUNT 4.06 MIL/MM3 (4.00-5.30); RED CELL DISTRIBUTION WIDTH 15.8 % (11.6-17.2); WHITE BLOOD COUNT 12.3 TH/MM3 (4.0-11.0)
[2017-03-13 07:59] VITALS: BP 134/78; PULSE 71; RESP 16; TEMP 99.4
[2017-03-13] MEDS: cloNIDine HCL 0.1 MG TAB PO SCH ×2 (09:06→13:08)
[2017-03-13] MEDS: IBUPROFEN 800 MG TAB PO SCH ×2 (09:06→13:09)
[2017-03-13] MEDS: LABETALOL HCL 100 MG TAB PO SCH (09:06)
[2017-03-13] MEDS: GABAPENTIN 300 MG CAP PO SCH ×2 (09:06→13:09)
[2017-03-13] MEDS: METHADONE HCL 10 MG TAB PO SCH (09:06)
--- NOTE | 2017-03-13 11:51 | MP ---
cc: STEPAN HUTTON DATE OF SURGERY: 03/13/2017 PREOPERATIVE DIAGNOSIS 1. 32 and 6/7 week intrauterine with preeclampsia with severe features. 2. Methadone dependence. POSTOPERATIVE DIAGNOSIS 1. 32 and 6/7 week intrauterine with preeclampsia with severe features. 2. Methadone dependence. PROCEDURE Primary low transverse segment section. ANESTHESIA Spinal with Duramorph followed by a TAP for long-term pain management. SURGEON Tisha. [employer]ACHINE [employer] Labor and Delivery Staff. FINDINGS A living male with Apgars of 8 at one and 8 at 5, delivered from [place] with clear fluid and no nuchal cord. He weighed 5 pounds even. His placenta was anterior and intact with a three-vessel cord. The patient had excessive bleeding despite being on magnesium and platelets of 120. Sponge, instrument and needle count were correct. Mom and baby tolerated the procedure well and both went to Recovery stable. DETAILS OF PROCEDURE The patient was apprised of the indications for the procedure risks, benefits and alternative, which at this point really were not any. She was taken to the operating room. A spinal was administered with Duramorph. She received 2 grams of Ancef. She was placed in dorsal supine position with weight off the vena cava. She had sequential stockings on. A West had been placed because she was already on magnesium. She was prepped and draped in the usual sterile fashion. A timeout was performed with everybody in attendance. She was assured of adequate analgesia and a Pfannenstiel incision was made with a knife and carried down through to the rectus fascia with the Bovie. The rectus fascia was incised in an elliptical fashion and taken off the rectus muscle. The rectus muscle was in the midline and the parietal peritoneum was entered. A bladder flap was created off the lower uterine segment which was well-developed. An incision was made into the intrauterine cavity just below the placenta and this was extended bluntly. The infant was delivered with the findings as noted above. The cord was clamped after 45 seconds and then cut and the baby handed to the neonatology team in attending. The placenta was delivered manually intact with a three-vessel cord and it was not sent. The uterus was exteriorized, cleaned with a lap sponge and closed with chromic in a running interlocking fashion with a second horizontal imbricating layer. It was replaced in the abdominal cavity. Irrigation was performed and the incision was carefully evaluated for hemostasis. The rectus muscle was then approximated gently with Vicryl. The fascia was closed with Vicryl in a non-interlocking fashion. The subcutaneous layer was closed with 3-0 plain and the skin was closed with 4-0 Vicryl on a Prabhu needle. Estimated blood loss was 500 cc, considered normal for this procedure. She tolerated the procedure well. Stepan Hutton MD PPC/BT /1:40 PM /11:45 AM
[2017-03-13 13:14] VITALS: BP 109/85; PULSE 75; RESP 16; TEMP 98.1
== END 2017-03-13 14:28 | disposition home or self-care (01) | DRG 765 ==
LOC: HOBED 10:37 → EDSTATUS 10:47 → H2EA 10:48 → OBSVTOIN 10:48 → INTOOBSV 10:48 → OBSVTOIN 20:15 → H2EB 03-10 20:13 → H2EA 03-11 14:21 → H1EA 03-12 14:38
PROVIDERS: ADMIT Obstetrics & Gynecology; ATTEND Obstetrics & Gynecology
PROC: 10D00Z1 Extraction of Products of Conception, Low, Open Approach (ICD-10-PCS; principal; 2017-03-11)
DX: O14.14 Severe pre-eclampsia complicating childbirth (principal); F11.20 Opioid dependence, uncomplicated; O99.334 Smoking (tobacco) complicating childbirth; O99.324 Drug use complicating childbirth; F17.210 Nicotine dependence, cigarettes, uncomplicated; Z3A.32 32 weeks gestation of pregnancy; Z37.0 Single live birth
CPT/HCPCS: 36415; 76937; 80053; 80076; 80307; 81001; 84157; 84550; 85025; 85027; 86850; 86900; 86901; 87081; 87150; 87522; 87641; G0378; G0481; J0702; J1200; J2274; J2405; J2590; J3475; J7120

== ENCOUNTER 2017-03-27 07:11 | Emergency (ER) | payer MEDICAID ==
[~2017-03-27] VITALS: Ht 170.2 cm; Wt 75.0 kg
[2017-03-27 07:13] VITALS: BP 129/81; PULSE 99; RESP 16; TEMP 98.2; O2SAT 99
[2017-03-27] MEDS ORDERED: IBUP800T23 PO (09:03)
[2017-03-27] MEDS ORDERED: CEPH-460 PO (09:03)
[2017-03-27] MEDS ORDERED: BACT800T5 PO (09:03)
--- NOTE | 2017-03-27 09:07 | PD ---
HPI Chief Complaint: Wound/Suture/Staple Re-Check Time Seen by Provider: 09:02 Travel History International Travel<30 days: No Contact w/Intl Traveler<30days: No Traveled to known affect area: No History of Present Illness HPI 26-year-old female presents to the emergency Department with complaint of infection to her section wound x 2 days. She had a on March 11. Her ride operator is Dr. Giles. She did follow up with Dr. Giles on March 21, but there was no signs of infection. Denies fever, vomiting. Reports tenderness to the area. Denies abdominal pain. Denies abnormal vaginal discharge, odor. Reports purulent drainage on the wound site. Has no other medical complaints. Symptoms are moderate in severity. No other modifying factors or associated signs and symptoms. PFSH Past Medical History Asthma: Yes Anxiety: Yes Depression: Yes Cardiovascular Problems: No Diminished Hearing: No Gastrointestinal Disorders: No Genitourinary: No Implanted Vascular Access Dvce: No Musculoskeletal: No Neurologic: No Respiratory: Yes ?: Not Menopausal: No : 0 Past Surgical History Other Surgery: Yes (I&D FOR CELLULITIS OF LEFT AND RIGHT FOREARMS BY DR. STODDARD) Social History Alcohol Use: No Tobacco Use: Yes Substance Use: Yes (INJECTING ROXICONTIN) Allergies-Medications (Allergen,Severity, Reaction): Coded Allergies: *MDRO Multi-Drug Resistant Organism (Verified Adverse Reaction, Unknown, ) MRSA PCR Positive 03/08/17 MRSA ankle wound 03/2015. Reported Meds & Prescriptions Reported Meds & Active Scripts Active Flagyl (Metronidazole) 500 Mg Tab 500 Mg PO BID 10 Days Bactrim DS (Sulfamethoxazole-Trimethoprim) 800-160 Mg Tab 1 Tab PO BID 10 Days Ibuprofen 800 Mg Tab 800 Mg PO Q6HR PRN Reported Adderall (Amphetamine-Dextroamphetamine) 30 Mg Tab 30 Mg PO BID Avoid late evening doses. Space doses at least 4 to 6 hours if more than once/day dosing. Wellbutrin SR 12 HR (Bupropion HCl) 150 Mg Tab 150 Mg PO Q12HR PRN Review of Systems Except as stated in HPI: all other systems reviewed are Neg Physical Exam Narrative GENERAL: Well-nourished, well-developed female patient, in no acute distress; afebrile, nontoxic-appearing SKIN: Warm and dry. Approximately 16 cm surgical wound to the lower abdomen with 2 areas that are becoming un-approximated on each end, draining purulent drainage and with surrounding erythema; the left side of the surgical wound has some tunneling that measures approximately 1.5 cm and iodoform packing was placed; the right side of the surgical wound has an area of an approximation and measures approximately 0.5 cm and is without tunneling. HEAD: Atraumatic. Normocephalic. EYES: Pupils equal and round. No scleral icterus. No injection or drainage. ENT: Mucosa pink and moist. Airway patent. NECK: Trachea midline. CARDIOVASCULAR: Regular rate. RESPIRATORY: No accessory muscle use. GASTROINTESTINAL: Abdomen soft, non-tender, nondistended. Positive bowel sounds. No hepato-splenomegaly, or palpable masses. No guarding. MUSCULOSKELETAL: No obvious deformities. No clubbing. No cyanosis. No edema. NEUROLOGICAL: Awake and alert. Oriented 3. No obvious cranial nerve deficits. Motor grossly within normal limits. Normal speech. PSYCHIATRIC: Appropriate mood and affect; insight and judgment normal. Data Data Last Documented VS Vital Signs Date Time Temp Pulse Resp B/P Pulse Ox O2 Delivery O2 Flow Rate FiO2 03/27/17 07:13 98.2 99 16 129/81 99 Orders Wound Culture And Gram Stain (03/27/17 09:09) MDM Medical Decision Making Medical Screen Exam Complete: Yes Emergency Medical Condition: Yes Medical Record Reviewed: Yes Differential Diagnosis Surgical wound infection, wound infection, medical clearance Narrative Course 26-year-old female presents with wound infection to both sides of the wound. Patient's surgery was March 11. Dr. Giles is her ride operator. Patient is afebrile and nontoxic-appearing. She denies fever, vomiting. Call placed to Dr. Giles at this time. [phone]: I spoke with Dr. Giles and she recommended Bactrim and Flagyl and for the patient to follow-up in her office tomorrow 1 PM. An appointment has been made. Dr. Giles also request for iodoform packing to be packed if there is any tunneling on either side of the wound. The left side of the wound measures that is infected measures partly 1.5 cm and has tunneling, which was packed with iodoform packing, per Dr. Giles's request. I told patient she has an appointment at 1 PM tomorrow and she verbalized understanding and agreement to follow up. Bactrim, Flagyl, ibuprofen prescribed for home. Instructed patient to follow up with primary care provider. Patient verbalizes understanding and agreement with treatment plan. Patient is medically cleared and stable for discharge. Discussed reasons to return to the emergency department. Patient agrees with treatment plan. The patients vital signs are stable and the patient is stable for outpatient follow-up and treatment. Patient discharged home, stable and in no acute distress. Diagnosis Primary Impression: wound infection Referrals: Lorene Giles MD Primary Care Physician Patient Instructions: Acute Wound Care (ED), General Instructions, Wound Infection (ED) Departure Forms: Tests/Procedures, Work Release Enter return to work date: Mar 28, 2017 Additional Instructions: Ibuprofen or Tylenol as instructed and has needed for pain and inflammation Keep area clean and dry Refer to acute wound care instructions for wound care Follow up with Dr. Giles tomorrow, March 28, at 1 PM Follow-up with primary care provider Return to the emergency department with worsening of symptoms Med/Other Pt SpecificInfo: Prescription(s) given Scripts Metronidazole (Flagyl)500 Mg Bvs056 Mg PO BID 10 Days Ref 0 Prov:Mona Faustin 03/27/17 Sulfamethoxazole-Trimethoprim (Bactrim DS)800-160 Mg Tab1 Tab PO BID 10 Days Ref 0 Prov:Mona Faustin 03/27/17 Ibuprofen 800 Mg Ygn056 Mg PO Q6HR PRN (PAIN) #30 TAB Ref 0 Prov:Mona Faustin 03/27/17 Disposition: 01 DISCHARGE HOME Condition: Stable Mona Faustin Mar 27, 2017 09:07
[2017-03-27] MEDS ORDERED: METR-1 PO (09:29)
== END 2017-03-27 10:05 | disposition home or self-care (01) ==
LOC: NEPK 07:11
DX: O86.0 Infection of obstetric surgical wound (principal); A49.02 Methicillin resistant Staphylococcus aureus infection, unspecified site; J45.909 Unspecified asthma, uncomplicated; F41.9 Anxiety disorder, unspecified
CPT/HCPCS: 86403; 87070; 87186; 99284

== ENCOUNTER 2017-07-24 21:51 | Emergency (ER) | payer SELFPAY ==
[~2017-07-24] VITALS: Ht 170.2 cm; Wt 70.0 kg
[~2017-07-24 21:51] MED LIST changes: +BACT800T5 PO; +IBUP1TAB7 PO; -METH10TA PO; +METR-1 PO; -PREN1CAP7 PO
[2017-07-24 21:53] VITALS: BP 123/57; PULSE 106; RESP 16; TEMP 98; O2SAT 99
--- NOTE | 2017-07-24 23:49 | PD ---
HPI Chief Complaint: Alcohol/Drug Intoxication Time Seen by Provider: 23:42 Travel History International Travel<30 days: No Contact w/Intl Traveler<30days: No Traveled to known affect area: No History of Present Illness HPI This is a 26-year-old female who presents voluntarily requesting detoxification from drugs. She reports an addiction to methamphetamines, most recently used his ago. She took some Xanax today. She reports that she would like to go to detoxification. Her family has been encouraging her in this endeavor. Her OB/ [employer] doctor Tisha has also been encouraging her to go to detoxification. I discussed the case with Dr. Giles on the phone. The patient is denying any suicidal or homicidal ideation. She denies any hallucinations. She has no medical complaints at this time. PFSH Past Medical History ADHD: Yes Asthma: Yes Anxiety: Yes Depression: Yes Cardiovascular Problems: No Diminished Hearing: No Gastrointestinal Disorders: No Genitourinary: No Implanted Vascular Access Dvce: No Musculoskeletal: No Neurologic: No Respiratory: Yes ?: Not LMP: 06/24/2017 Menopausal: No : 0 Past Surgical History Section: Yes (03/11/17) Other Surgery: Yes (I&D FOR CELLULITIS OF LEFT AND RIGHT FOREARMS BY DR. STODDARD) Social History Alcohol Use: No Tobacco Use: Yes (1/2 PPD) Substance Use: No (meth 1 or 2 days ago) Allergies-Medications (Allergen,Severity, Reaction): Coded Allergies: *MDRO Multi-Drug Resistant Organism (Verified Adverse Reaction, Unknown, ) MRSA (abdomen)-03/27/17 MRSA PCR Positive 03/08/17 MRSA ankle wound 03/2015. Reported Meds & Prescriptions Reported Meds & Active Scripts Active Flagyl (Metronidazole) 500 Mg Tab 500 Mg PO BID 10 Days Bactrim DS (Sulfamethoxazole-Trimethoprim) 800-160 Mg Tab 1 Tab PO BID 10 Days Ibuprofen 800 Mg Tab 800 Mg PO Q6HR PRN Reported Adderall (Amphetamine-Dextroamphetamine) 30 Mg Tab 30 Mg PO BID Avoid late evening doses. Space doses at least 4 to 6 hours if more than once/day dosing. Wellbutrin SR 12 HR (Bupropion HCl) 150 Mg Tab 150 Mg PO Q12HR PRN Review of Systems Except as stated in HPI: all other systems reviewed are Neg Physical Exam Narrative GENERAL: Well-developed well-nourished female in no acute distress. SKIN: Warm and dry. HEAD: Atraumatic. Normocephalic. EYES: Pupils equal and round. No scleral icterus. No injection or drainage. ENT: No nasal bleeding or discharge. Mucous membranes pink and moist. NECK: Trachea midline. No JVD. CARDIOVASCULAR: Regular rate and rhythm. No murmur appreciated. RESPIRATORY: No accessory muscle use. Clear to auscultation. Breath sounds equal bilaterally. GASTROINTESTINAL: Abdomen soft, non-tender, nondistended. Hepatic and splenic margins not palpable. MUSCULOSKELETAL: No obvious deformities. No clubbing. No cyanosis. No edema. NEUROLOGICAL: Awake and alert, drowsy but responds to questions and commands appropriately. No obvious cranial nerve deficits. Motor grossly within normal limits. Normal speech. PSYCHIATRIC: Appropriate mood and affect; insight and judgment normal. Data Data Last Documented VS Vital Signs Date Time Temp Pulse Resp B/P (MAP) Pulse Ox O2 Delivery O2 Flow Rate FiO2 07/24/17 21:53 98.0 106 16 123/57 (79) 99 Room Air Orders Orders Ed Discharge Order (07/24/17 23:45) MDM Medical Decision Making Medical Screen Exam Complete: Yes Emergency Medical Condition: Yes Medical Record Reviewed: Yes Differential Diagnosis Polysubstance abuse, detoxification, psychosis Narrative Course 26-year-old female presents requesting help with detoxification from illicit substances. She has no psychiatric symptoms that would warrant psychiatric evaluation or hospitalization. Psychiatric nurse in J pod who called [facility] however they are full and they have no beds available for detoxification at this time. The patient was given a packet of resources for outpatient follow-up purposes. I attempted to call the patient's mother on the phone in order to recommend considering exparte in front of a security technician however [facility]. Once the patient is clinically sober she will be discharged. Discussed with my attending who agrees with plan of care. Diagnosis Primary Impression: Polysubstance abuse Referrals: [facility] Additional Instructions: Follow-up at a detoxification center such as [facility]. Family members may consider an exparte order signed by a security technician. Med/Other Pt SpecificInfo: No Change to Meds Disposition: DISCHARGE HOME Condition: Stable Hayden Quijano Jul 24, 2017 23:49
[2017-07-25 06:51] VITALS: BP 99/58; PULSE 73; RESP 16; O2SAT 100
== END 2017-07-25 11:41 | disposition home or self-care (01) ==
LOC: NEPD 21:51
DX: F19.10 Other psychoactive substance abuse, uncomplicated (principal); F90.9 Attention-deficit hyperactivity disorder, unspecified type; J45.909 Unspecified asthma, uncomplicated; F41.9 Anxiety disorder, unspecified; F32.9 Major depressive disorder, single episode, unspecified; F17.200 Nicotine dependence, unspecified, uncomplicated; Z86.14 Personal history of Methicillin resistant Staphylococcus aureus infection; Z88.9 Allergy status to unspecified drugs, medicaments and biological substances
CPT/HCPCS: 99281

== ENCOUNTER 2017-10-31 20:15 | Emergency (ER) | payer OTHER ==
[~2017-10-31] VITALS: Ht 170.2 cm; Wt 80.0 kg
[2017-10-31 20:47] VITALS: BP 162/99; PULSE 100; RESP 16; TEMP 97; O2SAT 99
[2017-10-31] MEDS ORDERED: BUSP5TAB PO (20:54)
== END 2017-10-31 23:19 | disposition left against medical advice (07) ==
LOC: NEDAMB 20:15
DX: Z04.8 Encounter for examination and observation for other specified reasons (principal)
CPT/HCPCS: 99281

== ENCOUNTER 2017-11-01 07:40 | Emergency (ER) | payer OTHER ==
[~2017-11-01 07:40] MED LIST changes: -ADDE30TA PO; -BACT800T5 PO; +BUSP5TAB PO; -IBUP1TAB7 PO; -METR-1 PO
[2017-11-01 08:09] VITALS: BP 171/89; PULSE 99; RESP 20; TEMP 98.7; O2SAT 99
[2017-11-01 08:52] LABS: BACTERIA, URINE RARE /hpf; BILIRUBIN, URINE NEG (NEG); BLOOD, URINE NEG (NEG); GLUCOSE,URINE NEG (NEG); KETONE, URINE NEG (NEG); NITRITE,URINE NEG (NEG); PH, URINE 5.5 (5.0-8.5); SQUAMOUS EPITHELIAL CELL URINE 1 /hpf (0-5); URINE COLOR LIGHT-YELLOW (YELLW/STRAW); URINE LEUKOCYTE ESTERASE NEG (NEG)
--- NOTE | 2017-11-01 09:04 | PD ---
HPI Chief Complaint: Psychiatric Symptoms Time Seen by Provider: 08:07 Travel History International Travel<30 days: No Contact w/Intl Traveler<30days: No Traveled to known affect area: No History of Present Illness HPI 27-year-old female presents to the emergency room under Garcia act initiated by [employer] for supposed suicidal ideation. Patient denies suicidal homicidal ideation in the emergency room. States she just said that so that she could be warm because it is cold outside. Garcia act reports that she was breaking into cars trying to steal money for methamphetamine. Patient admits to polysubstance abuse. She is refusing labs. PFS Past Medical History ADHD: Yes Asthma: Yes Anxiety: Yes Depression: Yes Cardiovascular Problems: No Diminished Hearing: No Gastrointestinal Disorders: No Genitourinary: No Implanted Vascular Access Dvce: No Musculoskeletal: No Neurologic: No Respiratory: Yes Tetanus Vaccination: < 5 Years ?: Not Menopausal: No : 0 Past Surgical History Section: Yes (03/11/17) Other Surgery: Yes (I&D FOR CELLULITIS OF LEFT AND RIGHT FOREARMS BY DR. STODDARD) Social History Alcohol Use: No Tobacco Use: Yes (08/21 PPD) Substance Use: Yes (meth ) Allergies-Medications (Allergen,Severity, Reaction): Coded Allergies: *MDRO Multi-Drug Resistant Organism (Verified Adverse Reaction, Unknown, ) MRSA (abdomen)-03/27/17 MRSA PCR Positive 03/08/17 MRSA ankle wound 03/2015. Reported Meds & Prescriptions Reported Meds & Active Scripts Active Reported Buspirone (Buspirone HCl) 5 Mg Tab Unknown Dose PO Wellbutrin SR 12 HR (Bupropion HCl) 150 Mg Tab 150 Mg PO Q12HR PRN Review of Systems Except as stated in HPI: all other systems reviewed are Neg Physical Exam Narrative GENERAL: Well-nourished, well-developed female no acute distress. Afebrile. Ambulatory. SKIN: Focused skin assessment warm/dry. HEAD: Normocephalic. EYES: No scleral icterus. No injection or drainage. NECK: Supple, trachea midline. No JVD or lymphadenopathy. CARDIOVASCULAR: Regular rate and rhythm without murmurs, gallops, or rubs. RESPIRATORY: Breath sounds equal bilaterally. No accessory muscle use. PSYCHIATRIC: No delusional thought processes. No hallucinations. Data Data Last Documented VS Vital Signs Date Time Temp Pulse Resp B/P (MAP) Pulse Ox O2 Delivery O2 Flow Rate FiO2 11/01/17 08:09 98.7 99 20 171/89 (116) 99 Orders Orders Complete Blood Count With Diff (11/01/17 08:06) Comprehensive Metabolic Panel (11/01/17 08:06) Thyroid Stimulating Hormone (11/01/17 08:06) Urinalysis - C+S If Indicated (11/01/17 08:06) Ed Urine Pregnancytest Poc (11/01/17 08:06) Psych Screen (11/01/17 08:06) Drug Screen, Random Urine (11/01/17 08:06) Alcohol (Ethanol) (11/01/17 08:06) Ed Discharge Order (11/01/17 09:04) Labs Laboratory Tests Test 11/01/17 08:20 Urine Color LIGHT-YELLOW Urine Turbidity CLEAR Urine pH 5.5 Urine Specific [place] 1.005 Urine Protein NEG mg/dL Urine Glucose (UA) NEG mg/dL Urine Ketones NEG mg/dL Urine Occult Blood NEG Urine Nitrite NEG Urine Bilirubin NEG Urine Urobilinogen LESS THAN 2.0 MG/DL Urine Leukocyte Esterase NEG Urine WBC LESS THAN 1 /hpf Urine Squamous Epithelial Cells 1 /hpf Urine Bacteria RARE /hpf Microscopic Urinalysis Comment CULT NOT INDICATED Urine Opiates Screen NEG Urine Barbiturates Screen NEG Urine Amphetamines Screen POS Urine Benzodiazepines Screen NEG Urine Cocaine Screen NEG Urine Cannabinoids Screen NEG MDM Medical Decision Making Medical Screen Exam Complete: Yes Emergency Medical Condition: Yes Medical Record Reviewed: Yes Differential Diagnosis Personality disorder, schizophrenia, malingering Narrative Course 27-year-old female with a history of borderline personality disorder presents to the emergency room under a Garcia act for suicidal ideation. Patient admitted to [facility], stating that she wanted to be Garcia acted so she could come in from the cold. She was seen by the psychiatrist and the Garcia act was lifted. She is refusing labwork. UA is unremarkable. Physical exam is unremarkable. Patient is alert, oriented 4. Vital signs stable. She is stable for outpatient follow-up. Diagnosis Primary Impression: Borderline personality disorder Referrals: [facility] (Out patient) Additional Instructions: Follow-up per psychiatrist recommendations. Go to rehab. Disposition: 01 DISCHARGE HOME Condition: Stable Joie Bridges Nov 01, 2017 09:04
--- NOTE | 2017-11-01 12:14 | PD.PSY.CON ---
Provisional Diagnosis Admission Date [place] I. Substance-induced mood disorder, amphetamine use disorder [place] II. Antisocial personality disorder [place] III. No significant medical history History of Present Illness Service Psychiatry Consult Requested By ER Reason for Consult Under Garcia act Primary Care Physician No Primary Care Physician HPI The patient is 27-year-old woman, homeless, unemployed, single, with psychiatric history of substance-induced psychosis and mood disorder, polysubstance dependence including amphetamines, cannabis, alcohol and opiates, multiple ER visits with a similar presentation, mostly related with narcotic/ illegal drugs abuse, no significant medical history, who came to the emergency room under Garcia act initiated by [employer] for supposed suicidal ideation. Patient denies suicidal homicidal ideation in the emergency room. States she just said that so that she could be warm because it is cold outside. Garcia act reports that she was breaking into cars trying to steal money for methamphetamine. Patient admits to polysubstance abuse. She is refusing labs. ON My psychiatric evaluation today the patient is requesting to be discharged. 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 She reports daily use of amphetamines, "and whatever I can find". This moment the patient denies depression, denies anxiety , denies suicidal and homicidal ideation, she denies visual and auditory hallucinations. Review of Systems Constitutional: DENIES: Diaphoretic episodes, Fatigue, Fever, Weight gain, Weight loss, Chills, Dizziness, Change in appetite, Night Sweats Endocrine: DENIES: Abnorml menstrual pattern, Heat/cold intolerance, Polydipsia , Polyuria, Polyphagia Eyes: DENIES: Blurred vision, Diplopia, Eye inflammation, Eye pain, Vision loss , Photosensitivity, Double Vision Ears, nose, mouth, throat: DENIES: Tinnitus, Hearing loss, Vertigo, Nasal discharge, Oral lesions, Throat pain, Hoarseness, Ear Pain, Running Nose, Epistaxis, Sinus Pain, Toothache, Odynophagia Respiratory: DENIES: Apneas, Cough, Snoring, Wheezing, Hemoptysis, Sputum production, Shortness of breath Cardiovascular: DENIES: Chest pain, Palpitations, Syncope, Dyspnea on Exertion , PND, Lower Extremity Edema, Orthopnea, Claudication Gastrointestinal: DENIES: Abdominal pain, Black stools, Bloody stools, Constipation, Diarrhea, Nausea, Vomiting, Difficulty Swallowing, Anorexia Genitourinary: DENIES: Abnormal vaginal bleeding, Dysmenorrhea, Dyspareunia, Sexual dysfunction, Urinary frequency, Urinary incontinence, Urgency, Hematuria , Dysuria, Nocturia, Vaginal discharge Musculoskeletal: DENIES: Joint pain, Muscle aches, Stiffness, Joint Swelling, Back pain, Neck pain Integumentary: DENIES: Abnormal pigmentation, Pruritus, Rash, Nail changes, Breast masses, Breast skin changes, Nipple discharge Hematologic/lymphatic: DENIES: Bruising, Lymphadenopathy Immunologic/allergic: DENIES: Eczema, Urticaria Neurologic: DENIES: Abnormal gait, Headache, Localized weakness, Paresthesias, Seizures, Speech Problems, Tremor, Poor Balance Psychiatric: DENIES: Anxiety, Confusion, Mood changes, Depression, Hallucinations, Agitation, Suicidal Ideation, Homicidal Ideation, Delusions Past Family Social History Coded Allergies: *MDRO Multi-Drug Resistant Organism (Verified Adverse Reaction, Unknown, ) MRSA (abdomen)-03/27/17 MRSA PCR Positive 03/08/17 MRSA ankle wound 03/2015. Reported Medications Buspirone (Buspirone) 5 Mg Tab, PO for Anxiety, TAB 0 Refills 10/31/17 Bupropion HCl ER 12 HR (Wellbutrin SR 12 HR) 150 Mg Tab, 150 MG PO Q12HR Y for Control Depression, TAB 0 Refills 03/01/17 Discontinued Reported Medications Amphetamine-Dextroamphetamine (Adderall) 30 Mg Tab, 30 MG PO BID for Hyperactivity Control, #60 TAB 0 Refills Avoid late evening doses. Space doses at least 4 to 6 hours if more than once/day dosing. 03/01/17 Discontinued Scripts Metronidazole (Flagyl) 500 Mg Tab, 500 MG PO BID for Infection for 10 Days, TAB 0 Refills Prov:Mona Faustin STICKER ON 03/27/17 Sulfamethoxazole-Trimethoprim (Bactrim DS) 800-160 Mg Tab, 1 TAB PO BID for Infection for 10 Days, TAB 0 Refills Prov:Moan Faustin STICKER ON 03/27/17 Ibuprofen (Ibuprofen) 800 Mg Tab, 800 MG PO Q6HR Y for PAIN, #30 TAB 0 Refills Prov:Mona Faustin STICKER ON 8/8/17 Physical Exam Vital Signs Vital Signs Date Time Temp Pulse Resp B/P (MAP) Pulse Ox O2 Delivery O2 Flow Rate FiO2 11/01/17 08:09 98.7 99 20 171/89 (116) 99 Lab Results Test 11/01/17 08:20 Urine Color LIGHT-YELLOW Urine Turbidity CLEAR Urine pH 5.5 Urine Specific [place] 1.005 Urine Protein NEG mg/dL Urine Glucose (UA) NEG mg/dL Urine Ketones NEG mg/dL Urine Occult Blood NEG Urine Nitrite NEG Urine Bilirubin NEG Urine Urobilinogen LESS THAN 2.0 MG/DL Urine Leukocyte Esterase NEG Urine WBC LESS THAN 1 /hpf Urine Squamous Epithelial Cells 1 /hpf Urine Bacteria RARE /hpf Microscopic Urinalysis Comment CULT NOT INDICATED Urine Opiates Screen NEG Urine Barbiturates Screen NEG Urine Amphetamines Screen POS Urine Benzodiazepines Screen NEG Urine Cocaine Screen NEG Urine Cannabinoids Screen NEG Mental Status Examination Appearance: Appropriate Consciousness: Alert Orientation: x4 Motor Activity: Normal gait Speech: Unremarkable Language: Adequate Fund of Knowledge: Adequate Attention and Concentration: Adequate Memory: Unremarkable Mood: Appropriate Affect: Appropriate Thought Process & Associations: Intact Thought Content: Appropriate Hallucination Type: None Delusion Type: None Suicidal Ideation: No Suicidal Plan: No Suicidal Intention: No Homicidal Ideation: No Homicidal Plan: No Homicidal Intention: No Insight: Adequate Judgment: Adequate Assessment & Plan Problem List: (1) Polysubstance dependence ICD Codes: F19.20 - Other psychoactive substance dependence, uncomplicated Assessment & Plan: Psychiatric evaluation today the patient does not present any neuropsychiatric symptoms or require an immediate psychiatric intervention. The patient denies suicidal and homicidal ideation, the patient denies visual and auditory hallucinations. The patient has a well-known history of malingering, polysubstance dependence, personality pathology. Patient does not meet criteria for involuntary psychiatric admission at this moment. Garcia act will be lifted Assessment & Plan Estimated LOS: Cristopher Rdoriguez MD Nov 01, 2017 12:14
== END 2017-11-01 09:35 | disposition home or self-care (01) ==
LOC: NEPD 07:40 → NEPJ 09:35
DX: F60.3 Borderline personality disorder (principal); F90.9 Attention-deficit hyperactivity disorder, unspecified type; J45.909 Unspecified asthma, uncomplicated; F41.9 Anxiety disorder, unspecified; F32.9 Major depressive disorder, single episode, unspecified; F19.10 Other psychoactive substance abuse, uncomplicated; F17.200 Nicotine dependence, unspecified, uncomplicated; Z76.5 Malingerer [conscious simulation]
CPT/HCPCS: 80307; 81001; 84703; 99283